=== PATIENT | female | born 1995 | race Two or more races ===

== ENCOUNTER 2018-11-19 06:32 | Emergency (ER) | payer OTHER, SELFPAY ==
[2018-11-19 06:58] LABS: #Eosinphils 0.1 thou/uL (0.0-0.7); #Lymphocytes 2.2 thou/uL (1.20-3.40); #Monocytes 0.7 thou/uL (0.11-0.59); #Neutrophils 10.5 thou/uL (1.40-6.50); %Basophils 0.2 % (0.0-1.0); %Eosinophils 0.5 % (0.0-10.0); %Lymphocytes 16.4 % (21.0-51.0); %Monocytes 4.8 % (0.0-10.0); %Neutrophils 78.2 % (42.0-75.0); Hemoglobin 12.4 g/dL (12.0-16.0); Mean Corpuscular HGB CONC 32.1 g/dL (32.0-36.0); Mean Corpuscular Hemoglobin 26.8 pg (27.0-31.0); Mean Corpuscular Volume 83.4 fL (78.0-98.0); Mean Platelet Volume 7.3 fL (7.4-10.4); Platelet Count 360 thou/uL (130-400); RBC Distribution Width 12.4 % (11.5-14.5); Red Blood Cell (RBC) Count 4.63 mill/uL (4.20-5.40); White Blood Cell (WBC) Count 13.5 thou/uL (4.8-10.8)
[2018-11-19 07:17] LABS: ALT (SGPT) 13 U/L (8-55); AST (SGOT) 12 U/L (5-34); Albumin 4.5 g/dL (3.5-5.0); Alkaline Phosphatase 67 U/L (40-150); Anion Gap 13 mmol/L (10-20); BUN (Urea Nitrogen) 10 mg/dL (7.0-18.7); Bilirubin, Total 0.3 mg/dL (0.2-1.2); Calc. Creatinine Clearance 0 mL/min (70-130); Calcium 9.9 mg/dL (7.8-10.44); Carbon Dioxide 27 mmol/L (22-29); Chloride 102 mmol/L (98-107); Estimated GFR-MDRD Greater than 90; Globulin 3.7 g/dL (2.4-3.5); Glucose 109 mg/dL (70-105); Lipase 7 U/L (8-78); Potassium 4.1 mmol/L (3.5-5.1); Protein, Total 8.2 g/dL (6.0-8.3); Sodium 138 mmol/L (136-145)
[2018-11-19 07:20] LABS: Bilirubin Negative (Negative); Blood, Urine Negative (Negative); Clarity CLOUDY (Clear); Glucose, Urine (Dipstick) Negative (Negative); Leukocyte Trace (Negative); Nitrite Negative (Negative); Protein, Urine (Dipstick) Negative (Neg-Trace); Specific Gravity, Urine 1.021 (1.002-1.036); pH, Urine 6.5 (5.0-9.0)
[2018-11-19 07:22] LABS: Bacteria/HPF None Seen HPF (None Seen); Hyaline Casts/LPF 0-3 HYALINE CAST LPF (0-3 Hyaline); RBC/HPF 0-3 HPF (0-3); Squamous Epithelial 0-3 HPF (0-3)
[2018-11-19] MEDS ORDERED: Ondansetron PF 4 MG/2 ML Vial ONE (07:23)
[2018-11-19 07:59] LABS: BHCG - Serum Negative (NEGATIVE); Pregs Control Background? CLEAR/WHITE (CLR/WHITE); Pregs Control Bar Appear? YES (CONTROL BAR)
[2018-11-19] MEDS ORDERED: Sucralfate 1 GM/10 ML UDCUP ONE (08:01)
--- NOTE | 2018-11-19 08:16 | ULT ---
GALLBLADDER ULTRASOUND: Date: 11/19/18 INDICATION: Pain, epigastric pain. FINDINGS: There is evidence of cholelithiasis and gallbladder sludge. Gallbladder wall is normal in caliber. Mu rphy's sign reported as negative. No focal hepatic lesion or evidence of ascites. Common duct is 5 mm in diameter, borderline. IMPRESSION: 1. Cholelithiasis and gallbladder sludge. 2. Borderline size common duct. Correlate with biliary laboratory values to exclude developing obstr uctive process of the biliary system. POS: [facility]
== END 2018-11-19 09:33 | disposition home or self-care (01) ==
LOC: ERS 06:32
DX: K80.70 Calculus of gallbladder and bile duct without cholecystitis without obstruction (principal); F32.9 Major depressive disorder, single episode, unspecified; F25.9 Schizoaffective disorder, unspecified
CPT/HCPCS: 36415; 76705; 80053; 81003; 81015; 83690; 84703; 85025; 96361; 96374; J2405

== ENCOUNTER 2018-12-18 18:05 | Emergency (ER) | payer SELFPAY ==
[2018-12-18] MEDS ORDERED: Ibuprofen 800 MG TAB ONE (18:23)
[2018-12-18] MEDS ORDERED: Dexamethasone 10 MG/ML VIAL ONE (18:24)
== END 2018-12-18 19:07 | disposition home or self-care (01) ==
LOC: ERS 18:05
DX: J02.0 Streptococcal pharyngitis (principal); F25.9 Schizoaffective disorder, unspecified; F32.9 Major depressive disorder, single episode, unspecified
CPT/HCPCS: 87430; 99283; J1100

== ENCOUNTER 2019-01-03 11:08 | Emergency (ER) | payer SELFPAY ==
[2019-01-03 12:07] LABS: #Basophils 0.1 thou/uL (0.0-0.2); #Eosinphils 0.2 thou/uL (0.0-0.7); #Lymphocytes 2.7 thou/uL (1.20-3.40); #Monocytes 0.7 thou/uL (0.11-0.59); #Neutrophils 5.3 thou/uL (1.40-6.50); %Basophils 0.8 % (0.0-1.0); %Eosinophils 2.3 % (0.0-10.0); %Lymphocytes 30.1 % (21.0-51.0); %Monocytes 7.5 % (0.0-10.0); %Neutrophils 59.3 % (42.0-75.0); Hemoglobin 12.2 g/dL (12.0-16.0); Mean Corpuscular HGB CONC 32.7 g/dL (32.0-36.0); Mean Corpuscular Hemoglobin 27.4 pg (27.0-31.0); Mean Corpuscular Volume 83.9 fL (78.0-98.0); Mean Platelet Volume 7.9 fL (7.4-10.4); Platelet Count 291 thou/uL (130-400); RBC Distribution Width 12.7 % (11.5-14.5); Red Blood Cell (RBC) Count 4.44 mill/uL (4.20-5.40)
[2019-01-03 12:29] LABS: ALT (SGPT) 13 U/L (8-55); AST (SGOT) 13 U/L (5-34); Alkaline Phosphatase 56 U/L (40-150); Anion Gap 11 mmol/L (10-20); BUN (Urea Nitrogen) 8 mg/dL (7.0-18.7); Bilirubin, Total 0.4 mg/dL (0.2-1.2); Calc. Creatinine Clearance 0 mL/min (70-130); Calcium 9.1 mg/dL (7.8-10.44); Carbon Dioxide 23 mmol/L (22-29); Chloride 107 mmol/L (98-107); Estimated GFR-MDRD Greater than 90; Globulin 3.4 g/dL (2.4-3.5); Glucose 82 mg/dL (70-105); Lipase Less than 4 U/L (8-78); Protein, Total 7.4 g/dL (6.0-8.3); Sodium 137 mmol/L (136-145)
[2019-01-03] MEDS ORDERED: Ondansetron ODT 4 MG TAB ONE (12:53)
[2019-01-03 13:01] LABS: Bilirubin Negative (Negative); Blood, Urine Negative (Negative); Clarity CLOUDY (Clear); Glucose, Urine (Dipstick) Negative (Negative); Leukocyte Moderate (Negative); Nitrite Negative (Negative); Protein, Urine (Dipstick) Negative (Neg-Trace); Specific Gravity, Urine 1.024 (1.002-1.036)
[2019-01-03 13:05] LABS: Pregnancy Test - Urine (BHCG) Negative (Negative); Pregu Control Background? CLEAR/WHITE (CLR/WHITE); Pregu Control Bar Appear? YES (CONTROL BAR); Specific Gravity 1.024 (1.002-1.036)
[2019-01-03 13:06] LABS: Pathc Cast-AUWi Flag 1.08 (0-2.49)
[2019-01-03 13:25] LABS: Bacteria/HPF 1+ HPF (None Seen); RBC/HPF 0-3 HPF (0-3)
[2019-01-03 13:26] LABS: Trichomonas/HPF 1+ HPF (None Seen)
[2019-01-03 13:28] LABS: Hyaline Casts/LPF NONE SEEN LPF (0-3 Hyaline)
[2019-01-03] MEDS ORDERED: Lidocaine 1% PF 5 ML VIAL ONE (14:22)
[2019-01-03] MEDS ORDERED: Azithromycin 250 MG TAB ONE (14:22)
[2019-01-03] MEDS ORDERED: cefTRIAXone\\ROCEPHIN 250 MG VIAL ONE (14:22)
[2019-01-03] MEDS ORDERED: metroNIDAZOLE 250 MG TAB ONE (15:38)
== END 2019-01-03 15:07 | disposition home or self-care (01) ==
LOC: ERS 11:08
DX: A59.9 Trichomoniasis, unspecified (principal); R11.2 Nausea with vomiting, unspecified; R19.7 Diarrhea, unspecified; F41.9 Anxiety disorder, unspecified; F31.9 Bipolar disorder, unspecified
CPT/HCPCS: 36415; 80053; 81003; 81015; 81025; 83690; 85025; 96372; J0696; J2001; Q0162

== ENCOUNTER 2022-08-19 03:54 | Emergency (ER) | payer OTHER ==
[2022-08-19] MEDS ORDERED: Acetaminophen 500 MG TAB ONE (04:03)
[2022-08-19 05:11] LABS: SARS-CoV-2 NAA Rapid Test DETECTED (NotDetected)
== END 2022-08-19 05:51 | disposition home or self-care (01) ==
LOC: ERS 03:54
DX: U07.1 COVID-19 (principal)
CPT/HCPCS: 99283